=== PATIENT | female | born 1995 | race Caucasian/White ===

== ENCOUNTER 2021-09-24 15:11 | Outpatient (CLI) | payer BC ==
[~2021-09-24] VITALS: Ht 177.8 cm; Wt 126.8 kg
--- NOTE | 2021-09-24 15:20 | NUR ---
Pt ambulatory onto unit. Changed into clean gown. [place]/FHR monitor applied. Pt denies any regular contractions, leaking of fluid, vaginal bleeding or decreased movement. Vital signs being monitored. Assessments completed. Plan of care discussed. Pt verbalizes understanding.
[2021-09-24 15:30] VITALS: BP 139/87; PULSE 105; TEMP 98.1
[2021-09-24] MEDS ORDERED: PRENATAL TABLET PO (15:31)
[2021-09-24] MEDS ORDERED: TYLENOL 325MG325 MG PO (15:32)
[2021-09-24 16:00] VITALS: BP 127/84; PULSE 96
[2021-09-24 16:12] LABS: BASO % 0.2 % (0.0-2.0); EOS % 0.4 % (0-4.0); GRAN # 7.6 K/mm3 (1.4-6.5); GRAN % 72.3 % (42.2-75.2); HEMATOCRIT 37.6 % (37.0-47.0); LYMPH # 1.9 K/mm3 (1.2-3.4); LYMPH % 18.2 % (20.0-51.0); MEAN CELL VOLUME 86 fl (80.0-100.0); MEAN CORPUSCULAR HEMOGLOBIN 30 pg (27.0-31.0); MEAN CORPUSCULAR HGB CONC 35 g/dl (33.0-37.0); MONO # 0.9 K/mm3 (0.1-0.6); MONO % 8.4 % (1.7-9.3); PLATELET COUNT 194 K/mm3 (130-400)
[2021-09-24 16:22] LABS: ALBUMIN 2.7 gm/dL (3.5-5.0); BILIRUBIN,TOTAL 0.3 mg/dL (0.2-1.2); CREATININE, serum 0.61 mg/dL (0.57-1.11); POTASSIUM 3.7 mmol/L (3.5-4.5); TOTAL PROTEIN 6.1 gm/dL (6.2-8.1)
[2021-09-24 16:30] VITALS: BP 136/92; PULSE 100
[2021-09-24 17:00] VITALS: BP 142/74; PULSE 76
[2021-09-24 17:30] VITALS: BP 135/76; PULSE 108
[2021-09-24 17:52] VITALS: BP 117/68; PULSE 87
--- NOTE | 2021-09-24 18:08 | NUR ---
1800 Discharge instructions discussed. Pt instructed to call with questions or concerns. Pt ambulatory to own vehicle.
== END 2021-09-24 18:00 | disposition home or self-care (01) ==
LOC: LDRO 15:11 → LDR 15:19 → LDRO 18:00
PROVIDERS: Obstetrics & Gynecology
DX: O16.3 Unspecified maternal hypertension, third trimester (principal); Z3A.40 40 weeks gestation of pregnancy
CPT/HCPCS: OP

== ENCOUNTER 2021-09-28 06:31 | Inpatient (IN) | payer BC ==
[2021-09-28] VITALS (54 sets, daily range): BP systolic 110–183; BP diastolic 54–113; PULSE 52–127; TEMP 97.8–99.1
[~2021-09-28] VITALS: Ht 177.8 cm; Wt 126.4 kg
--- NOTE | 2021-09-28 06:15 | NUR ---
Patient ambulatory to LR6 with spouse. Changed into gown. FHR/TOCO placed. Patient here for scheduled induction for post dates. Patient denies any regular contractions, leaking of fluids, or decreased movement. Plan of care discussed. 0640: IV started in left wrist per Bev Leon RN. Blood obtained and to lab. LR infusing. 0739: Pitocin induction discussed. Patient agrees with plan of care. Pitocin started at 2 mu/hr per protocol.
[~2021-09-28 06:31] MED LIST: PRENATAL TABLET PO; TYLENOL 325MG325 MG PO
[2021-09-28] MEDS ORDERED: TYLENOL PM EXTR1 TA1 PO (06:56)
[2021-09-28] MEDS ORDERED: STOOL SOFTENER100 M2 PO (06:56)
[2021-09-28] MEDS ORDERED: OSCAL 500 TAB500 MG PO (06:56)
[2021-09-28 07:23] LABS: BASO % 0.3 % (0.0-2.0); EOS # 0.1 K/mm3 (0.0-0.7); EOS % 0.7 % (0-4.0); GRAN # 6.8 K/mm3 (1.4-6.5); HEMATOCRIT 38.8 % (37.0-47.0); HEMOGLOBIN 13.3 g/dl (12.5-16.0); LYMPH # 2.3 K/mm3 (1.2-3.4); LYMPH % 22.8 % (20.0-51.0); MEAN CELL VOLUME 86 fl (80.0-100.0); MEAN CORPUSCULAR HEMOGLOBIN 30 pg (27.0-31.0); MEAN CORPUSCULAR HGB CONC 34 g/dl (33.0-37.0); MEAN PLATELET VOLUME 12.4 fl (7.4-10.4); MONO # 0.7 K/mm3 (0.1-0.6); MONO % 6.7 % (1.7-9.3); PLATELET COUNT 189 K/mm3 (130-400); RED BLOOD COUNT 4.49 M/mm3 (4.10-5.30)
[2021-09-28 07:49] LABS: ALBUMIN 2.6 gm/dL (3.5-5.0); BILIRUBIN,TOTAL 0.4 mg/dL (0.2-1.2); CALCIUM 9.2 mg/dL (8.4-10.2); CREATININE, serum 0.69 mg/dL (0.57-1.11); POTASSIUM 3.4 mmol/L (3.5-4.5)
--- NOTE | 2021-09-28 09:20 | NUR ---
Roles at bedside assessing patient and FHR strip. Discussing plan of care. 0922: SVE per physician 3-/-2. AROM at this time. Will continue to monitor status of fluid.
--- NOTE | 2021-09-28 10:20 | NUR ---
Difficulty tracing FHR due to maternal position. This RN at bedside adjusting monitor. 1050: Patient on birthing ball. This RN adjusting monitor. 1100: Patient requesting epidural. Griffin Osborn CRNA called and notified. 1130: Patient sitting up for epidural. Griffin Osborn CRNA at bedside. Difficulty tracing FHR due to maternal position. 1137: Test dose givien and patient tolerates well. 1142: Patient repositioned. Plan of care/safety discussed. 1235: Vasquez catheter placed and tolerates well. SVE 6/90/-1. Patient wedged right with peanut ball in place.
--- NOTE | 2021-09-28 15:45 | NUR ---
Vasquez catheter removed and patient tolerates well. 1550: Pushing instructions discussed and patient begins to push with each contraction. 1615: Late decelerations noted at this time. Fluid bolus started. 1645: FHR baseline increasing 155-165bpm and variable decelerations noted. Patient continues to push with contraction. 1820: Roles at bedside assessing progress. Giovani MELENDREZ given bedside report.
--- NOTE | 2021-09-28 18:45 | NUR ---
[address] BAHENA AT BEDSIDE. 1850 DELIVERED VIABLE MALE LFD OVER 2 DEGREE LAC WITH APGARS 8. REMAINS IN LR6. IVS CONTINUE TO INFUSE.
--- NOTE | 2021-09-28 20:45 | NUR ---
2044 IV TO INT. EPID CATH REMOVED. SAT ON SIDE OF BED AND STOOD BUT BECAME VERY DIZZY. PERICARE DONE IN BED WITH NEW PAD AND PANTIES ON. TO 208 PER W/C AND JITENDRA WELL. MOVES LEGS WELL. 2100 SCHEDULED MOTRIN 800MG PO GIVEN.
[2021-09-29 03:00] VITALS: BP 130/73; PULSE 702; TEMP 98.7
[2021-09-29 08:55] VITALS: BP 133/73; PULSE 107; TEMP 98.4
[2021-09-29 12:14] VITALS: BP 131/72; PULSE 105
[2021-09-29 16:24] VITALS: BP 105/56; PULSE 97; TEMP 98.4
[2021-09-29 20:00] VITALS: BP 110/60; PULSE 88; TEMP 98.3
[2021-09-30 07:10] VITALS: BP 112/56; PULSE 75; TEMP 98.4
[2021-09-30] MEDS ORDERED: IBU800 M1 PO (09:11)
== END 2021-09-30 10:30 | disposition home or self-care (01) | DRG 806 ==
LOC: LDR 06:31 → OB 10:58
PROVIDERS: ADMIT Obstetrics & Gynecology
PROC: 10D07Z3 Extraction of Products of Conception, Low Forceps, Via Natural or Artificial Opening (ICD-10-PCS; principal; 2021-09-28)
PROC: 10907ZC Drainage of Amniotic Fluid, Therapeutic from Products of Conception, Via Natural or Artificial Opening (ICD-10-PCS; 2021-09-28)
PROC: 3E033VJ Introduction of Other Hormone into Peripheral Vein, Percutaneous Approach (ICD-10-PCS; 2021-09-28)
DX: O48.0 Post-term pregnancy (principal); O98.32 Other infections with a predominantly sexual mode of transmission complicating childbirth; Z37.0 Single live birth; O99.214 Obesity complicating childbirth; O75.81 Maternal exhaustion complicating labor and delivery; O70.1 Second degree perineal laceration during delivery; A60.09 Herpesviral infection of other urogenital tract; Z3A.41 41 weeks gestation of pregnancy
CPT/HCPCS: J2590; J7120

== ENCOUNTER → 2021-10-03 | Outpatient (CLI) | payer BC ==
[~2021-10-03] MED LIST changes: +IBU800 M1 PO; +OSCAL 500 TAB500 MG PO; +STOOL SOFTENER100 M2 PO; +TYLENOL PM EXTR1 TA1 PO
--- NOTE | 2021-10-03 14:41 | NUR ---
Pt, Anuradha Ann, presents for outpatient consult with 5 day old baby boy, Justin Ann and her spouse Yesi Ann. They are being evaluated for milk production and transfer. Justin was born on [birth year] and weighed 9#1.0oz (4110 gms). He was using a nipple shield while in the hospital for difficult latching. This LC met the family on 10/01/21 when they were in for a repeat bilirubin check. Pt stated at that time she was just feeling her milk supply starting to increase, but because of low output, jaundice, and weight loss this LC instructed them on use of SNS. Justin was seen that same morning at [facility] and reportedly weighed 7#15oz. The following day (10/02/21) he was seen at [facility] and reportedly weighed 8#5oz. He had been drinking about 30ml formula per feeding via SNS, about 10 feedings per 24 hours. His output increased as well. Pt has been pumping after , collecting 3-6ml per pumping. Anuradha contacted this LC 10/02/21 to schedule this consult. At that time she states the bowel movements had slowed down and that he was not finishing the full 30ml of SNS. They also moved away from use of the nipple sheild. It was thought that Justin was starting to transfer more milk from the breast, however he did not have a stool this day. Today Justin weighs 8#5.3oz (3778 gms). Pt states the bowel movements are increasing again with 3 so far today. They are brown and runny. Voids continue to meet expectations. Pt places Justin to the breast, struggles with latch initially, but does nurse him directly. Justin has sub-par effort and gains 2gms. He nurses with the shield and has an additional 2gm gain. From the second breast he does not demonstrate gain. Justin is placed back to the breast with the SNS. He nurses more actively, and is directly latched. From the left breast he has additional gain of 12gm from formula and 6gms from BM; from the right a gain of 8gms from formula and 0gms from breast. Total gain is 32gms, 20 of formula, 12 of breastmilk. He is then fed about 30 additional ml of formula. Pt denies any medical or delivery history that would account for a low milk supply. She has fully developed breasts that are moderately wide-spaced. Justin does have a high palate, which may contribute. Pt has been pumping after each feeding but has not seen an increase in milk supply. Impression: Low milk supply. Plan of Care: Feed baby 2oz per feeding (8-10 per day). Pump, power pump as directed, consider herbal supplements. Family indicates they will likely pump and bottle feed to better mangage time, intake, and stimulation of milk supply. F/U: As scheduled with Dr. Barnes. Early next week pt to contact this LC with milk supply update and determine follow up consult. Questions invited and answered.
== END ==
LOC: LAC 08:44
DX: Z39.1 Encounter for care and examination of lactating mother (principal); Z71.89 Other specified counseling

== ENCOUNTER → 2021-10-15 | Outpatient (CLI) | payer BC ==
--- NOTE | 2021-10-15 15:02 | NUR ---
Pt, Anuradha Ann, presents for outpatient consult with 2.5 week old baby boy, Justin Ann, and her spouse Yesi. Justin was born on [birth year] by low forceps delivery and weighed 9#1.0oz (4111 gms). He was seen in this office on 10/03/21 and weighed 8#5.3oz (3779 gms). At that time, the impression was Justin had a difficult latch, transfering just a few ml of breastmilk. KOKO evaluated oral anatomy and felt a high arch to his palate, making it difficult to remain latched well and compress the breast tissue effectively between his tongue and palate. Pt was advised to continue offering breast ~1 times daily, pump and supplement by bottle. Pt states that she tries to get Justin to the breast 1-2 times a day, having best success in the side lying position. He drinks 3oz EBM/formla each feeding (8/day), even after . Pt pumps about 16oz BM daily. Today Justin weighs 9#15.2oz (4514 gms). He was seen five days ago at Dr. Barnes's office and weight is reported as 9#11oz. We attempt to latch Justin directly to the breast, he cries, pushes and arches away. The nipple shield is placed and readily latches. After nursing each breast 10-15 minutes Justin has a weight gain of 20 gms. Pt feels he will not likely do more with so he is fed about 2oz EBM and formula. KOKO notes Justin's high palate is likely the reason for the decreased milk transfer, as pt is able to pump 1+ oz while he is bottle fed. Discussion re: improved milk volume (2oz per session) but low milk transfer. Pt express concern about being able to continue with the 3-step feeding plan once her returns to work. Ideas provided on pumping and bottle feeding simultaneous. Pt asks about nipple confusion. KOKO feels the high palate makes milk transfer the underlying cause because of the large residual after nursing. POC: Pt will continue with current plan: offering breast as desired, supplementing ~3oz, and pumping. Disucssed increasing pumping effort by minutes or more power pumping sessions to improve milk supply and continue use of herbal supplements. F/U: As schedule with Dr. Barnes for one month appt, with this LC as desired. Questions invited and answered.
== END ==
LOC: LAC 10-09 14:34
DX: Z39.1 Encounter for care and examination of lactating mother (principal); Z71.89 Other specified counseling